=== PATIENT | male | born 1955 | race Caucasian/White ===

== ENCOUNTER 2023-02-17 12:59 | Emergency (ER) | payer OTHER ==
[~2023-02-17] VITALS: Ht 172.7 cm; Wt 90.0 kg
[2023-02-17 13:02] VITALS: O2SAT 98
[2023-02-17] MEDS ORDERED: IBUPROFEN 600MG TABLET PO ONE (13:15)
[2023-02-17 15:40] VITALS: BP 111/65; PULSE 95; RESP 16; TEMP 98.2
== END 2023-02-17 15:52 | disposition home or self-care (01) ==
LOC: ER 13:13
DX: S82.001A Unspecified fracture of right patella, initial encounter for closed fracture (principal); W10.9XXA Fall (on) (from) unspecified stairs and steps, initial encounter; Y93.89 Activity, other specified; Y92.89 Other specified places as the place of occurrence of the external cause; Y99.8 Other external cause status
CPT/HCPCS: 99283; 73562; L1830